=== PATIENT | female | born 1995 | race Caucasian/White ===

== ENCOUNTER 2020-04-22 06:32 | Emergency (ER) | payer OTHER ==
[~2020-04-22] VITALS: Ht 162.6 cm; Wt 115.0 kg
--- NOTE | 2020-04-22 06:40 | NUR ---
CC OF INCREASING ABD PAIN X 3 DAYS, + VOMITING. GETS WORSE AFTER EATING, DENIES FEVERS/CHILLS. SEEN AT [facility], TOLD TO COME IN FOR WORSENING PAIN. DOES NOT HAVE APPOITMENT FOR SURGEY.
--- NOTE | 2020-04-22 06:51 | NUR ---
REPORT GIVEN TO JAKE GUERRERO
[2020-04-22] MEDS ORDERED: SODIUM CHLORIDE FLUSH 10ML SYR IVF ONE (07:00)
[2020-04-22] MEDS ORDERED: ONDANSETRON 2MG/ML, 2ML IVPush ONE (07:00)
[2020-04-22] MEDS ORDERED: MORPHINE SULFATE 4 MG/ML, 1ML IVPush PRN (07:00)
[2020-04-22] MEDS ORDERED: MORPHINE SULFATE 4 MG/ML, 1ML ONE (07:05)
[2020-04-22] MEDS ORDERED: ONDANSETRON 2MG/ML, 2ML ONE (07:05)
[2020-04-22 07:10] LABS: BASOPHILS % (AUTO) 1 % (0-1); EOSINOPHILS % (AUTO) 0 % (1-7); LYMPHOCYTES % (AUTO) 24 % (22-44); MEAN CORPUSCULAR HEMOGLOBIN 29.2 pg (27.0-34.8); MEAN PLATELET VOLUME 7.8 fL (7.4-10.4); MONOCYTES % (AUTO) 4 % (2-9); NEUTROPHILS % (AUTO) 70 % (42-75); PLATELET COUNT 272 x10^3/uL (130-400); RED BLOOD COUNT 4.69 x10^6/uL (3.82-5.3); RED CELL DISTRIBUTION WIDTH 13.6 % (9.6-15.2)
[2020-04-22 07:14] LABS: MD NO
[2020-04-22 07:20] LABS: ALANINE AMINOTRANSFERASE 61 U/L (12-78); ALBUMIN 3.5 g/dL (3.4-5.0); ANION GAP 6 mmol/L (5-15); CALCIUM 8.8 mg/dL (8.5-10.1); CHLORIDE 109 mmol/L (98-107)
--- NOTE | 2020-04-22 07:20 | NUR ---
MEDICATED FOR ABDOMINAL PAIN AND NAUSEA
[2020-04-22 07:23] LABS: ALKALINE PHOSPHATASE 72 U/L (45-117); BILIRUBIN,TOTAL 0.3 mg/dL (0.2-1.0); CREATININE 0.77 mg/dL (0.55-1.02); TOTAL PROTEIN 7.8 g/dL (6.4-8.2)
[2020-04-22 07:43] LABS: MICROSCOPIC INDICATED
--- NOTE | 2020-04-22 08:28 | NUR ---
RESTING WITH EYES CLOSED, NO DISTRESS
[2020-04-22 08:32] VITALS: BP 122/73
== END 2020-04-22 09:19 | disposition home or self-care (01) ==
LOC: ED 06:55
DX: K80.20 Calculus of gallbladder without cholecystitis without obstruction (principal); N30.00 Acute cystitis without hematuria; R10.13 Epigastric pain; R11.2 Nausea with vomiting, unspecified
CPT/HCPCS: 36415; 76700; 80053; 81001; 83690; 85025; 87086; 96374; 96375; 99284; J2270; J2405